=== PATIENT | male | born 1995 ===

== ENCOUNTER 2017-05-28 14:29 | Emergency (ER) | payer OTHER ==
[2017-05-28 14:43] VITALS: BP 109/74; PULSE 61; RESP 19; TEMP 97.7; O2SAT 100
--- NOTE | 2017-05-28 15:11 | ED PDOC ---
HPI: Skin/Bite Injury Time Seen by Provider: 05/28/17 14:38 Chief Complaint (Nursing): Abnormal Skin Integrity Chief Complaint (Provider): Abnormal Skin Integrity History Per: Patient History/Exam Limitations: no limitations Onset/Duration Of Symptoms: Days (x1 week) Current Symptoms Are (Timing): Still Present Additional Complaint(s): Katerina Galeana is a 22 year old male who presents to the emergency department with a complaint of diffuse skin rash that started from the neck then progressed to bilateral arms, bilateral legs and forehead ongoing for 1 week. Denied knowledge of new diet, detergent or soap, no medications. PMD: none provided Past Medical History Reviewed: Historical Data, Nursing Documentation, Vital Signs Vital Signs: Last Vital Signs Temp 97.7 F 05/28/17 14:41 Pulse 61 05/28/17 14:41 Resp 19 05/28/17 14:41 BP 109/74 05/28/17 14:41 Pulse Ox 100 05/28/17 15:30 - Medical History PMH: No Chronic Diseases - Family History Family History: States: Unknown Family Hx - Home Medications Home Medications: Ambulatory Orders Medication Instructions Recorded DiphenhydrAMINE [Benadryl] 25 mg PO Q4 #20 cap 05/28/17 - Allergies Allergies/Adverse Reactions: Allergies Allergy/AdvReac Type Severity Reaction Status Date / Time No Known Allergies Allergy Verified 05/28/17 14:43 Review of Systems ROS Statement: Except As Marked, All Systems Reviewed And Found Negative Skin: Positive for: Rash (neck, forehead, bilateral arms and bilateral legs) Physical Exam - Reviewed Nursing Documentation Reviewed: Yes Vital Signs Reviewed: Yes - Physical Exam Appears: Positive for: Well, Non-toxic, No Acute Distress Head Exam: Positive for: ATRAUMATIC, NORMAL INSPECTION, NORMOCEPHALIC Skin: Positive for: Warm, Dry, Rash (erythematous palpable rash to extensive surface of bilateral upper extremities, neck, forehead, and bilateral lower extremities). Negative for: Normal Color Neck: Positive for: Painless ROM Extremity: Positive for: Normal ROM Neurologic/Psych: Positive for: Alert, Oriented - ECG O2 Sat by Pulse Oximetry: 100 (RA) Pulse Ox Interpretation: Normal Medical Decision Making Medical Decision Making: Initial Impression: Skin rash Initial Plan: * Prednisone 20mg PO * Benadryl 25mg PO Scribe Attestation: Documented by Netta Avendano, acting as a scribe for Ariana Street Provider Scribe Attestation: All medical record entries made by the Scribe were at my direction and personally dictated by me. I have reviewed the chart and agree that the record accurately reflects my personal performance of the history, physical exam, medical decision making, and the department course for this patient. I have also personally directed, reviewed, and agree with the discharge instructions and disposition. Disposition - Clinical Impression Clinical Impression: Rash - Disposition Disposition: Routine/Home Disposition Time: 17:13 Condition: STABLE Prescriptions: DiphenhydrAMINE [Benadryl] 25 mg PO Q4 #20 cap Instructions: Acute Rash (ED) Forms: [facility] ([employer])
== END 2017-05-28 17:02 | disposition home or self-care (01) ==
LOC: H.ER 14:29
DX: R21 Rash and other nonspecific skin eruption (principal)